=== PATIENT | male | born 1995 | race African-American/Black ===

== ENCOUNTER 2019-10-18 22:12 | Inpatient (IN) | payer OTHER ==
[2019-10-18] MEDS ORDERED: METOCLOPRAMIDE HCL INJECTION 10 MG/2 ML VIAL IVPB ONE (22:23)
--- NOTE | 2019-10-18 22:23 | PDOC ---
Rapid Medical Evaluation Chief Complaint: Headache Time Seen by Provider: 10/18/19 22:18 Medical Evaluation: 10/18/19 22:18 24 year old male BIBA seen at [facility] [place] yesterday for concussion / headache, patient reports headache today with photosensitivity, nausea. vomiting. s/p head injury 2 days ago while boxing. PE; patient alert ox3 A; headache P; ct head CBC CMP Discharge Disposition - Diagnosis Head injury due to trauma Qualifiers: Encounter type: initial encounter Qualified Code(s): S09.90XA - Unspecified injury of head, initial encounter Headache Qualifiers: Headache type: post-traumatic Headache chronicity pattern: acute headache Intractability: intractable Qualified Code(s): G44.311 - Acute post-traumatic headache, intractable - Referrals - Patient Instructions - Post Discharge Activity
[2019-10-18] MEDS ORDERED: ACETAMINOPHEN 1000 MG/100 ML VIAL (NON FORMULARY) IVPB ONE (22:24)
--- NOTE | 2019-10-18 23:05 | PDOC ---
History of Present Illness - General Chief Complaint: Headache Stated Complaint: INJURY/R/SIDE/HEAD/PAIN Time Seen by Provider: 10/18/19 22:18 - History of Present Illness Initial Comments: Oral Winston is a 24 y/o male with no reported PMH presenting today with headache. He was boxing at the gym on Friday, taking multiple gloved hits to the head. Reports brief LOC. Reports that he had a mild headache on Friday. Reports that the headache worsened yesterday and he was sent to [facility]. Today, he started having nausea and vomiting multiple times NBNB throughout the day that started when he woke up. Reports photophobia bilaterally that also started today. No vision changes. Reports right sided headache and right sided retro- orbital pain. Describes the pain as sharp. No radiation down the neck. No dizziness/fever. Reports associated abdominal pain that he attributes to the multiple episodes of vomiting. No chest pain/shortness of breath. No back pain. No leg swelling. SocHx: social ETOH drinker, smokes marijuana every other day, no cigarettes/vaping/hooka Past History - Medical History Allergies/Adverse Reactions: Allergies Allergy/AdvReac Type Severity Reaction Status Date / Time No Known Allergies Allergy Verified 10/18/19 22:25 COPD: No - Psycho-Social/Smoking History Smoking History: Current every day smoker Information on smoking cessation initiated: Yes - Substance Abuse Hx (Audit-C & DAST Scrn) How often the patient has a drink containing alcohol: Monthly or less Score: In Men: 4 or > Positive; In Women: 3 or > Positive: 1 Screen Result (Pos requires Nsg. Audit-10AR): Negative Review of Systems - Review of Systems Comments:: GENERAL/CONSTITUTIONAL: No fever or chills. No weakness._ HEAD, EYES, EARS, NOSE AND THROAT: No change in vision. Reports photophobia. No change in hearing. No sore throat._ CARDIOVASCULAR: No chest pain or shortness of breath_ RESPIRATORY: Denies cough, hemoptysis_ GASTROINTESTINAL: Reports nausea and vomiting. No diarrhea or constipation._ GENITOURINARY: No dysuria, frequency, or change in urination._ MUSCULOSKELETAL: No joint or muscle swelling or pain. No neck or back pain._ SKIN: No rash_ NEUROLOGIC: Reports right sided headache. Reports brief LOC. No vertigo or change in strength/sensation._ ENDOCRINE: No increased thirst. No abnormal weight change_ HEMATOLOGIC/LYMPHATIC: No anemia, easy bleeding, or history of blood clots._ ALLERGIC/IMMUNOLOGIC: No hives or skin allergy._ *Physical Exam - Vital Signs Last Vital Signs Temp Pulse Resp BP Pulse Ox 98.9 F 80 20 116/71 100 10/18/19 22:21 10/18/19 22:21 10/18/19 22:21 10/18/19 22:21 10/18/19 22:21 - Physical Exam GENERAL: Awake, alert, and oriented to person/place/time, in no acute distress_ HEAD: No signs of trauma, normocephalic, atraumatic _ EYES: PERRLA, EOMI, sclera anicteric, conjunctiva clear. No nystagmus on far lateral gaze bilaterally. ENT: Hearing grossly normal, nares patent, oropharynx clear without exudates. No uvular deviation. Moist mucosa_ NECK: Normal ROM, supple, no lymphadenopathy, JVD, or masses_ LUNGS: No distress, speaks in full sentences, clear to auscultation bilaterally _ HEART: Regular rate and rhythm, normal S1 and S2, no murmurs appreciated, peripheral pulses normal and equal bilaterally._ ABDOMEN: Soft, mild diffuse TTP, normoactive bowel sounds. No guarding, no rebound. No masses_ EXTREMITIES: Normal inspection, Normal range of motion, no edema. No clubbing or cyanosis_ NEUROLOGICAL: CN II-XII tested and intact. Sensation intact to sharp/dull differentiation in all extremities. Motor: Normal tone and bulk. No abnormal movements appreciated. No pronator drift. Strength tested and 5/5 in bilateral wrist flexion/extension, elbow flexion/extension, shoulder abduction, straight leg raise, knee flexion/exten braxton, ankle dorsiflexion/plantarflexion. Patient ambulates with a steady gait. Coordination: Finger to nose and heel to hurley testing intact bilaterally. SKIN: Warm, Dry, normal turgor, no rashes or lesions noted_ ED Treatment Course - LABORATORY CBC & Chemistry Diagram: 10/19/19 06:25 10/19/19 06:25 Medical Decision Making - Medical Decision Making 24M presenting today with right sided headache that started on Friday after he was boxing. Photophobia/nausea/vomiting started when he woke up this morning. DDx includes r/o intracranial hemorrhage vs concussion. -CT head/neck -cbc/cmp -coags -type and screen 10/18/19 23:04 CT head shows right pareital subdural hemorrhage 6mm with no mass effect and no midline shift. Case d/w Dr. Marr. 10/18/19 23:15 D/w Dr. Menjivar who requests ICU admission. No mannitol/IV fluids. Head of bed up 30 degrees. Tylenol/percocet/codeine for pain PRN. BP as is. Q4h neuro checks. Will evaluate tomorrow morning. D/w Dr. Taylor who accepts the patient for admission. Discharge - Discharge Information Problems reviewed: Yes Clinical Impression/Diagnosis: Subdural hemorrhage Head injury due to trauma Qualifiers: Encounter type: initial encounter Qualified Code(s): S09.90XA - Unspecified injury of head, initial encounter Headache Qualifiers: Headache type: post-traumatic Headache chronicity pattern: acute headache Intractability: intractable Qualified Code(s): G44.311 - Acute post-traumatic headache, intractable Condition: Guarded - Admission Yes - Follow up/Referral - Patient Discharge Instructions - Post Discharge Activity
[2019-10-18] MEDS ORDERED: METOCLOPRAMIDE HCL INJECTION 10 MG/2 ML VIAL ONE (23:16)
[2019-10-18] MEDS ORDERED: ACETAMINOPHEN INJECTION 100 ML IVPB ONE (23:17)
--- NOTE | 2019-10-18 23:21 | PDOC ---
Documentation entered by Sole Alex SCRIBE, acting as scribe for Sridevi Rosario MD. Sridevi Rosario MD: This documentation has been prepared by the Isai don Brenda, SCRIBE, under my direction and personally reviewed by me in its entirety. I confirm that the documentation accurately reflects all work, treatment, procedures, and medical decision making performed by me. Attending Attestation - Resident Resident Name: MaxwellAlfredo - ED Attending Attestation I have performed the following: I have examined & evaluated the patient, The case was reviewed & discussed with the resident, I agree w/resident's findings & plan, Exceptions are as noted - HPI HPI: 10/18/19 22:45 The patient is a 24 year old male with no significant PMH who presents to the ED BIBA for evaluation of headache, photosensitivity, nausea and vomiting s/p head injury 2 days ago (Friday). Patient notes that while boxing, he hit her head and the next day (yesterday) she went to [facility] for a left-sided headache and retro-orbital pain. Patient notes that after being hit he briefly lost conscious in the left eye. He notes that today he had several episodes of vomiting and complains of abdominal pain. Allergies: NKA - Physicial Exam PE: 10/18/19 23:11 24 yo male was boxing at a gym on Friday and received several gloved blows to the head and has since developed headaches associated with vomiting 10/18/19 23:13 10/18/19 23:14 head no scalp lacerations neck no midline cervical vertebral tenderness lungs cta b/l cvs [id number] abdomen flat,nontender extremities no edema.no deformities skn warm and dry neuro alert and conversant,+photophobia - Medical Decision Making 10/18/19 23:16 ct scan hed reveals a 6 mm right parietal subdural hematoma, there is no shift, no mass effect case discussed with neurosurgery, Dr Menjivar and he said no mannital or IVF pt can get tylenol or percocet or codeine for pain keep bed at 30 degrees Q4 neuro checks admit to ICU Discharge - Discharge Information Problems reviewed: Yes Clinical Impression/Diagnosis: Head injury due to trauma Qualifiers: Encounter type: initial encounter Qualified Code(s): S09.90XA - Unspecified injury of head, initial encounter Headache Qualifiers: Headache type: post-traumatic Headache chronicity pattern: acute headache Intractability: intractable Qualified Code(s): G44.311 - Acute post-traumatic headache, intractable - Follow up/Referral - Patient Discharge Instructions - Post Discharge Activity
[2019-10-18] MEDS ORDERED: AMIODARONE HCL 150 MG/3 ML VIAL IVPUSH ONE (23:32)
[2019-10-18 23:52] LABS: BASO % 0.2 % (0-2.0); HEMATOCRIT 43.7 % (35.4-49); HEMOGLOBIN 15.2 GM/dL (11.7-16.9); LYMPH % 14.6 % (8-40); MCH 30.9 pg (25.7-33.7); MCHC 34.7 g/dl (32.0-35.9); MEAN PLT VOLUME 8.8 fl (7.5-11.1); MONO % 9.6 % (3.8-10.2); NEUT % 75.6 % (42.8-82.8); PLATELET COUNT 186 K/MM3 (134-434); RBC 4.91 M/mm3 (4.00-5.60); RDW 13.3 % (11.9-15.9); WHITE BLOOD COUNT 13.6 K/mm3 (4.0-10.0)
[2019-10-18 23:54] LABS: INR 1.08 (0.83-1.09); PROTHROMBIN TIME (PATIENT) 12.7 SEC (9.7-13.0)
[2019-10-18 23:56] LABS: ACTIVATED PTT 30.7 SECONDS (25.2-36.5)
[2019-10-19 00:07] LABS: ALBUMIN 4.2 g/dl (3.4-5.0); BLOOD UREA NITROGEN 7.3 mg/dL (7-18); CALCIUM 9.6 mg/dL (8.5-10.1); CREATININE 0.9 mg/dL (0.55-1.3); POTASSIUM 3.6 mmol/L (3.5-5.1); TOT PROT 7.8 g/dl (6.4-8.2)
--- NOTE | 2019-10-19 02:02 | CONSULT ---
Consultation: REQUESTING PROVIDER: CONSULT REQUEST: We have been asked to medically evaluate this patient for (specify). HISTORY OF PRESENT ILLNESS: Mr. Winston is a 24 yo male with no significant medical history, presented to [facility] s/p head trauma 2 days with NB/NB vomiting, photophobia and headaches. Pt states on Friday night head was boxing with some Friends with padded gloves and recalls being struck on the right side of his head leading to sudden onset intense pain. Since this event, pt reports persistent and worsening VORA since yesterday morning described as sharp and non radiating on the right side of his head. Pt reports multiple NB/NB episodes of vomiting and photophobia since this morning. Pt also admits to mild diffuse abdominal pain, worse when vomiting. Pt denies midline neck pain, weakness or sensory deficits into his extremities, changes in vision or speech, changes in gait, dizziness, incontinence or retention of urine or stool, F/C, CP, SOB, back pain, injury or pain to any other part of his body REVIEW OF SYSTEMS: CONSTITUTIONAL: Absent: fever, chills, diaphoresis, generalized weakness, malaise, loss of appetite, weight change HEENT: Absent: rhinorrhea, nasal congestion, throat pain, throat swelling, difficulty swallowing, mouth swelling, ear pain, eye pain, visual changes CARDIOVASCULAR: Absent: chest pain, syncope, palpitations, irregular heart rate, lightheadedness, peripheral edema RESPIRATORY: Absent: cough, shortness of breath, dyspnea with exertion, orthopnea, wheezing, stridor, hemoptysis GASTROINTESTINAL: Admits mild and diffuse abdominal pain to palpation, nausea, vomiting Denies, diarrhea, constipation, melena, hematochezia GENITOURINARY: Absent: dysuria, frequency, urgency, hesitancy, hematuria, flank pain, genital pain MUSCULOSKELETAL: Absent: myalgia, arthralgia, joint swelling, back pain, neck pain SKIN: Absent: rash, itching, pallor NEUROLOGIC: Admits right sided persistent headache and photophobia Denies focal weakness or paresthesias, dizziness, unsteady gait, seizure, mental status changes, bladder or bowel incontinence PHYSICAL EXAMINATION Vital Signs - 24 hr 10/18/19 22:21 Temperature 98.9 F Pulse Rate 80 Respiratory 20 Rate Blood Pressure 116/71 O2 Sat by Pulse 100 Oximetry (%) GENERAL: Awake, alert, and fully oriented, laying in room with blanket covering eyes due to Photophobia HEAD: Normal with no signs of trauma. Pain on palpation to right temporal region EYES: Pupils equal, round and reactive to light, extraocular movements intact, sclera anicteric, conjunctiva clear. No lid lag. EARS, NOSE, THROAT: Ears normal, nares patent, oropharynx clear without exudates. Moist mucous membranes. No hemotympanum NECK: Normal range of motion, supple without lymphadenopathy, JVD, or masses. No pain midline on palpation LUNGS: Breath sounds equal, clear to auscultation bilaterally. No wheezes, and no crackles. No accessory muscle use. HEART: Regular rate and rhythm, normal S1 and S2 without murmur, rub or gallop. ABDOMEN: Soft, nontender, not distended, normoactive bowel sounds, no guarding, no rebound, no masses. No hepatomegaly or splenomegaly. Mild pain on light palpation diffusely MUSCULOSKELETAL: Normal range of motion at all joints. No bony deformities or tenderness. No CVA tenderness. Pelvis stable UPPER EXTREMITIES: 2+ pulses, warm, well-perfused. No cyanosis. No clubbing. Cap refill <2 seconds. No peripheral edema. LOWER EXTREMITIES: 2+ pulses, warm, well-perfused. No calf tenderness. No peripheral edema. NEUROLOGICAL: Cranial nerves II-XII intact. Normal speech. Normal gait. 5/5 strength and equal in both upper and lower ext compared PSYCHIATRIC: Cooperative. Good eye contact. Appropriate mood and affect. SKIN: Warm, dry, normal turgor, no rashes or lesions noted. Laboratory Results - last 24 hr 10/18/19 10/18/19 10/18/19 23:30 23:30 23:30 WBC 13.6 H RBC 4.91 Hgb 15.2 Hct 43.7 MCV 89.0 MCH 30.9 MCHC 34.7 RDW 13.3 Plt Count 186 MPV 8.8 Absolute Neuts (auto) 10.2 H Neutrophils % 75.6 Lymphocytes % 14.6 Monocytes % 9.6 Eosinophils % 0.0 Basophils % 0.2 Nucleated RBC % 0 PT with INR 12.70 INR 1.08 PTT (Actin FS) 30.7 Sodium 138 Potassium 3.6 Chloride 103 Carbon Dioxide 26 Anion Gap 8 BUN 7.3 Creatinine 0.9 Est GFR (CKD-EPI)AfAm 140.02 Est GFR (CKD-EPI)NonAf 120.81 Random Glucose 112 H Calcium 9.6 Total Bilirubin 2.0 H AST 26 ALT 24 Alkaline Phosphatase 84 Total Protein 7.8 Albumin 4.2 Lipase 52 L Blood Type Antibody Screen 10/18/19 23:30 WBC RBC Hgb Hct MCV MCH MCHC RDW Plt Count MPV Absolute Neuts (auto) Neutrophils % Lymphocytes % Monocytes % Eosinophils % Basophils % Nucleated RBC % PT with INR INR PTT (Actin FS) Sodium Potassium Chloride Carbon Dioxide Anion Gap BUN Creatinine Est GFR (CKD-EPI)AfAm Est GFR (CKD-EPI)NonAf Random Glucose Calcium Total Bilirubin AST ALT Alkaline Phosphatase Total Protein Albumin Lipase Blood Type O POSITIVE Antibody Screen Negative Active Medications Generic Name Dose Route Start Last Admin Trade Name Freq PRN Reason Stop Dose Admin Acetaminophen 1,000 mg 10/19/19 00:14 Ofirmev Injection - IVPB 10/20/19 00:15 Q6H PRN HEADACHE Chlorhexidine Gluconate 1 applic 10/19/19 22:00 Hibiclens For Decolonization - TP HS EDITH Mupirocin 1 applic 10/19/19 10:00 Bactroban Ointment (For Decolonization) - NS 10/24/19 09:59 BID EDITH ASSESSMENT/PLAN: CT head shows 5.7 mm right parietal subdural hemorrhage without mass effect or shift S/P 2 days from injury As Per ED Resident, Dr. Arreola, case was discussed with Dr. Menjivar who states the bleed appears to be resolving and recommendations are listed below *Neuro -NS evaluation in the AM with further instructions -head of the bed 30 degrees -Do not give mannitol or fluids -Keep BP below 140 systolic -give tylenol or percocets or codeine for pain -Q4 Neuro checks -SCDs for DVT prophylaxis (hold all AC and anti platelets) Dispo: We will continue to follow the patient. Thank you for this consultative opportunity. ATTENDING PHYSICIAN STATEMENT I saw and evaluated the patient. I reviewed the resident's note and discussed the case with the resident. I agree with the resident's findings and plan as documented. SUBJECTIVE: OBJECTIVE: ASSESSMENT AND PLAN:
--- NOTE | 2019-10-19 07:36 | PN ---
Physical Exam: SUBJECTIVE: Patient seen and examined OBJECTIVE: Vital Signs Period Temp Pulse Resp BP Sys/Miles Pulse Ox Last 24 Hr 98.2 F-98.9 F 57-80 15-20 101-116/55-71 97-100 GENERAL: The patient is awake, alert, and fully oriented, in no acute distress. HEAD: Normal with no signs of trauma. EYES: PERRL, extraocular movements intact, sclera anicteric, conjunctiva clear. No ptosis. ENT: Ears normal, nares patent, oropharynx clear without exudates, moist mucous membranes. NECK: Trachea midline, full range of motion, supple. LUNGS: Breath sounds equal, clear to auscultation bilaterally, no wheezes, no crackles, no accessory muscle use. HEART: Regular rate and rhythm, S1, S2 without murmur, rub or gallop. ABDOMEN: Soft, nontender, nondistended, normoactive bowel sounds, no guarding, no rebound, no hepatosplenomegaly, no masses. EXTREMITIES: 2+ pulses, warm, well-perfused, no edema. NEUROLOGICAL: Cranial nerves II through XII grossly intact. Normal speech, gait not observed. PSYCH: Normal mood, normal affect. SKIN: Warm, dry, normal turgor, no rashes or lesions noted Laboratory Results - last 24 hr 10/18/19 10/18/19 10/18/19 23:30 23:30 23:30 WBC 13.6 H RBC 4.91 Hgb 15.2 Hct 43.7 MCV 89.0 MCH 30.9 MCHC 34.7 RDW 13.3 Plt Count 186 MPV 8.8 Absolute Neuts (auto) 10.2 H Neutrophils % 75.6 Lymphocytes % 14.6 Monocytes % 9.6 Eosinophils % 0.0 Basophils % 0.2 Nucleated RBC % 0 PT with INR 12.70 INR 1.08 PTT (Actin FS) 30.7 Sodium 138 Potassium 3.6 Chloride 103 Carbon Dioxide 26 Anion Gap 8 BUN 7.3 Creatinine 0.9 Est GFR (CKD-EPI)AfAm 140.02 Est GFR (CKD-EPI)NonAf 120.81 Random Glucose 112 H Calcium 9.6 Total Bilirubin 2.0 H AST 26 ALT 24 Alkaline Phosphatase 84 Total Protein 7.8 Albumin 4.2 Lipase 52 L Blood Type Antibody Screen 10/18/19 23:30 WBC RBC Hgb Hct MCV MCH MCHC RDW Plt Count MPV Absolute Neuts (auto) Neutrophils % Lymphocytes % Monocytes % Eosinophils % Basophils % Nucleated RBC % PT with INR INR PTT (Actin FS) Sodium Potassium Chloride Carbon Dioxide Anion Gap BUN Creatinine Est GFR (CKD-EPI)AfAm Est GFR (CKD-EPI)NonAf Random Glucose Calcium Total Bilirubin AST ALT Alkaline Phosphatase Total Protein Albumin Lipase Blood Type O POSITIVE Antibody Screen Negative Active Medications Generic Name Dose Route Start Last Admin Trade Name Freq PRN Reason Stop Dose Admin Acetaminophen 1,000 mg 10/19/19 00:14 Ofirmev Injection - IVPB 10/20/19 00:15 Q6H PRN HEADACHE Chlorhexidine Gluconate 1 applic 10/19/19 22:00 Hibiclens For Decolonization - TP HS EDITH Mupirocin 1 applic 10/19/19 10:00 Bactroban Ointment (For Decolonization) - NS 10/24/19 09:59 BID EDITH ASSESSMENT/PLAN: ATTENDING PHYSICIAN STATEMENT I saw and evaluated the patient. I reviewed the resident's note and discussed the case with the resident. I agree with the resident's findings and plan as documented. SUBJECTIVE: OBJECTIVE: ASSESSMENT AND PLAN:
[2019-10-19 07:39] LABS: BASO % 0.3 % (0-2.0); EOS % 0.3 % (0-4.5); HEMATOCRIT 42.2 % (35.4-49); HEMOGLOBIN 14.7 GM/dL (11.7-16.9); LYMPH % 22.4 % (8-40); MCH 31.4 pg (25.7-33.7); MCHC 34.9 g/dl (32.0-35.9); MEAN PLT VOLUME 8.9 fl (7.5-11.1); MONO % 11.4 % (3.8-10.2); NEUT % 65.6 % (42.8-82.8); PLATELET COUNT 189 K/MM3 (134-434); RBC 4.69 M/mm3 (4.00-5.60); RDW 12.9 % (11.9-15.9); WHITE BLOOD COUNT 12.6 K/mm3 (4.0-10.0)
[2019-10-19 07:53] LABS: BILIRUBIN,TOTAL 2.3 mg/dL (0.2-1); BLOOD UREA NITROGEN 7.9 mg/dL (7-18); CALCIUM 9.5 mg/dL (8.5-10.1); MAGNESIUM 2.3 mg/dL (1.8-2.4); PHOSPHOROUS 4.7 mg/dL (2.5-4.9); POTASSIUM 3.8 mmol/L (3.5-5.1); TOT PROT 7.5 g/dl (6.4-8.2)
[2019-10-19] MEDS: MUPIROCIN 2% TOPICAL OINTMENT FOR DECOLONIZATION NS SCH ×2 (09:37→21:24)
--- NOTE | 2019-10-19 10:43 | EKG ---
Test Reason : Blood Pressure : / mmHG Vent. Rate : 062 BPM Atrial Rate : 062 BPM P-R Int : 136 ms QRS Dur : 102 ms QT Int : 402 ms P-R-T Axes : 048 051 048 degrees QTc Int : 408 ms SINUS RHYTHM WITH MARKED SINUS ARRHYTHMIA OTHERWISE NORMAL ECG NO PREVIOUS ECGS AVAILABLE Confirmed by Donald Grissom ([id number]) on 10/19/2019 10:43:27 AM Referred By: Confirmed By:Donald Grissom
--- NOTE | 2019-10-19 11:12 | PN ---
Teaching Attending Note Name of Resident: Francois Morales ATTENDING PHYSICIAN STATEMENT I saw and evaluated the patient. I reviewed the resident's note and discussed the case with the resident. I agree with the resident's findings and plan as documented. SUBJECTIVE: Pt seen and examined in the ICU. Still some photophobia, nausea improving. No shortness of breath or chest pain. OBJECTIVE: Vital Signs Period Temp Pulse Resp BP Sys/Miles Pulse Ox Last 24 Hr 98.0 F-98.9 F 57-80 15-20 101-116/55-71 97-100 Intake & Output 10/16/19 10/17/19 10/18/19 10/19/19 23:59 23:59 23:59 23:59 Weight 63.503 kg 63.5 kg Gen: NAD at rest Heart: RRR Lung: decreased breath sounds at the bases Abd: soft, nontender Ext: no edema CBC, BMP 10/19/19 06:25 10/19/19 06:25 Active Medications Acetaminophen (Ofirmev Injection -) 1,000 mg IVPB Q6H PRN PRN Reason: HEADACHE Stop: 10/20/19 00:15 Chlorhexidine Gluconate (Hibiclens For Decolonization -) 1 applic TP HS EDITH Mupirocin (Bactroban Ointment (For Decolonization) -) 1 applic NS BID EDITH Stop: 10/24/19 09:59 Last Admin: 10/19/19 09:37 Dose: 1 applic Documented by: ASSESSMENT AND PLAN: Traumatic Subdural Hemorrhage - neuro checks - CT head in AM - pain control - DVT prophylaxis - continue ICU monitoring
[2019-10-19] MEDS: ACETAMINOPHEN 1000 MG/100 ML VIAL (NON FORMULARY) IVPB PRN ×2 (13:23→19:55)
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
--- NOTE | 2019-10-19 17:28 | HOSP ---
Subjective - Review of Symptoms Subjective: Pt seen and assessed at bedside in ICU, seen stable, NAD, AOx3. Pt stable for transfer from ICU to /. Physical Examination Vital Signs: Vital Signs Temperature 98.0 F 10/19/19 14:00 Pulse Rate 58 L 10/19/19 14:00 Respiratory Rate 20 10/19/19 14:00 Blood Pressure 106/64 10/19/19 14:00 O2 Sat by Pulse Oximetry (%) 100 10/19/19 14:00 Findings/Remarks: General: AOx3, pt resting comfortably in bed Lungs: Clear B/L Heart: RRR, no murmurs or rubs noted Abdomen: Soft, non-tender, non distended Neuro: Motor 5/5, sensations intact in all 4 extremities Extremities: 2+ pulses, no edema Labs: CBC, BMP 10/19/19 06:25 10/19/19 06:25 Visit type - Emergency Visit Emergency Visit: No - New Patient This patient is new to me today: No - Critical Care Critical Care patient: No
[2019-10-19] MEDS: CHLORHEXIDINE GLUCONATE 4% CLEANSER FOR DECOLONIZATION TP SCH (21:24)
[2019-10-20] MEDS ORDERED: oxyCODONE HCL 5 MG TABLET PO ONE ×2 (00:22→17:22)
[2019-10-20] MEDS: ACETAMINOPHEN 1000 MG/100 ML VIAL (NON FORMULARY) IVPB PRN ×3 (02:41→15:34)
[2019-10-20 06:31] LABS: BASO % 0.2 % (0-2.0); EOS % 0.4 % (0-4.5); HEMATOCRIT 42.5 % (35.4-49); HEMOGLOBIN 14.8 GM/dL (11.7-16.9); LYMPH % 24.1 % (8-40); MCH 31.4 pg (25.7-33.7); MCHC 34.9 g/dl (32.0-35.9); MEAN CELL VOLUME 89.9 fl (80-96); MEAN PLT VOLUME 8.8 fl (7.5-11.1); MONO % 9.7 % (3.8-10.2); NEUT % 65.6 % (42.8-82.8); PLATELET COUNT 198 K/MM3 (134-434); RBC 4.72 M/mm3 (4.00-5.60); RDW 13.1 % (11.9-15.9); WHITE BLOOD COUNT 10.2 K/mm3 (4.0-10.0)
[2019-10-20 06:43] LABS: BLOOD UREA NITROGEN 11.9 mg/dL (7-18); CALCIUM 9.5 mg/dL (8.5-10.1); CREATININE 1.1 mg/dL (0.55-1.3)
[2019-10-20] MEDS ORDERED: diphenhydrAMINE HCL 25 MG CAPSULE (FP) PO PRN (09:09)
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
--- NOTE | 2019-10-20 09:16 | CON.NEURO ---
Consult - Smoking History Smoking history: Current every day smoker Have you smoked in the past 12 months: Yes Home Medications - Allergies Allergies/Adverse Reactions: Allergies Allergy/AdvReac Type Severity Reaction Status Date / Time No Known Allergies Allergy Verified 10/18/19 22:25 Physical Exam-Neuro Vital Signs: Vital Signs Temperature 98.0 F 10/19/19 14:00 Pulse Rate 54 L 10/20/19 08:00 Respiratory Rate 17 10/20/19 08:00 Blood Pressure 105/60 10/20/19 08:00 O2 Sat by Pulse Oximetry (%) 98 10/20/19 08:00 Labs: CBC, BMP 10/20/19 05:55 10/20/19 05:55 INR, PTT INR 1.08 (0.83-1.09) 10/18/19 23:30 Assessment/Plan cc Right parietal small subdural while boxing HPI 24 nilsa old male, otherwise healthy came to hospital for headache and vomiting, found to have small subdural hematoma. He is being managed conservatively, patient is complaining of headhace. He was seen by neurosurgery.Pateint is sleepy this morning, as he could not sleep during night. He is being downgraded from icu. Patient denies any esizure, fever or any flu like s ymptoms. PMH not significant SocHx: social ETOH drinker, smokes marijuana every other day, no cigarettes/vaping/hooka Allergies/Adverse Reactions: Allergies Allergy/AdvReac Type Severity Reaction Status Date / Time No Known Allergies Allergy Verified 10/18/19 22:25 ROS,FH,SH reviewed in chart NEUROLOGICAL EXMAINATION Alert oriented x 3, neck is supple vss, afebrile eomi, pupils reactive no face asymmetry face sensation is normal motor 5/5 all ext sensation is normal reflex are symmetrical ct head done on october 29 - unchanged , no midline shift Neurosurgeyr following Assessment/Plan Small subdural while boxing, no comorbidity, clinically and neuroloigcally stable, being downgrade. I spent 35 min cc time Plan: continue tylenol or opioid prn for headahce - spoke to house staff, may add compazine and benadryl for headahce prn - neurosurgery following - repeat ct head on october 21 Thanking you so much René Nye MD
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
[2019-10-20] MEDS: MUPIROCIN 2% TOPICAL OINTMENT FOR DECOLONIZATION NS SCH ×2 (10:33→23:35)
--- NOTE | 2019-10-20 11:12 | PN ---
Teaching Attending Note Name of Resident: Francois Morales ATTENDING PHYSICIAN STATEMENT I saw and evaluated the patient. I reviewed the resident's note and discussed the case with the resident. I agree with the resident's findings and plan as documented. SUBJECTIVE: Pt seen and examined in the ICU. Photophobia, nausea improving. No shortness of breath or chest pain. CT head this AM unchanged. OBJECTIVE: Vital Signs Period Temp Pulse Resp BP Sys/Miles Pulse Ox Last 24 Hr 98.0 F-98.6 F 54-58 17-20 105-111/57-68 97-100 Intake & Output 10/17/19 10/18/19 10/19/19 10/20/19 23:59 23:59 23:59 23:59 Intake Total 600 150 Balance 600 150 Weight 63.503 kg 63.5 kg 63.5 kg Gen: NAD at rest Heart: RRR Lung: decreased breath sounds at the bases Abd: soft, nontender Ext: no edema CBC, BMP 10/20/19 05:55 10/20/19 05:55 Active Medications Acetaminophen (Ofirmev Injection -) 1,000 mg IVPB Q6H PRN PRN Reason: PAIN LEVEL 1-5 Stop: 10/21/19 02:28 Last Admin: 10/20/19 09:18 Dose: 1,000 mg Documented by: Chlorhexidine Gluconate (Hibiclens For Decolonization -) 1 applic TP HS [facility] Last Admin: 10/19/19 21:24 Dose: 1 applic Documented by: Diphenhydramine HCl (Benadryl -) 25 mg PO HS PRN PRN Reason: INSOMNIA Mupirocin (Bactroban Ointment (For Decolonization) -) 1 applic NS BID [facility] Stop: 10/24/19 09:59 Last Admin: 10/20/19 10:33 Dose: 1 applic Documented by: Prochlorperazine Maleate (Compazine -) 5 mg PO Q4H PRN PRN Reason: NAUSEA AND/OR VOMITING ASSESSMENT AND PLAN: Traumatic Subdural Hemorrhage - neuro checks - pain control - DVT prophylaxis - can monitor on floor
[2019-10-20] MEDS: PROCHLORPERAZINE MALEATE 5 MG TABLET PO PRN (15:31)
[2019-10-20 15:46] VITALS: BMI 21.7
[2019-10-20] MEDS ORDERED: SODIUM CHLORIDE 1,000 ML IV STA (18:23)
[2019-10-20] MEDS ORDERED: diphenhydrAMINE HCL 25 MG CAPSULE (FP) PO ONE (18:31)
[2019-10-20] MEDS ORDERED: ACETAMINOPHEN 1000 MG/100 ML VIAL (NON FORMULARY) IVPB PRN (18:36)
[2019-10-20] MEDS: CHLORHEXIDINE GLUCONATE 4% CLEANSER FOR DECOLONIZATION TP SCH (22:00)
[2019-10-21] MEDS: PROCHLORPERAZINE MALEATE 5 MG TABLET PO PRN ×3 (01:50→21:54)
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
[2019-10-21 08:12] LABS: BASO % 0.2 % (0-2.0); EOS % 0.2 % (0-4.5); HEMATOCRIT 41.7 % (35.4-49); HEMOGLOBIN 14.5 GM/dL (11.7-16.9); LYMPH % 14.7 % (8-40); MCHC 34.8 g/dl (32.0-35.9); MEAN CELL VOLUME 89.2 fl (80-96); MEAN PLT VOLUME 8.9 fl (7.5-11.1); MONO % 9.1 % (3.8-10.2); NEUT % 75.8 % (42.8-82.8); PLATELET COUNT 226 K/MM3 (134-434); RBC 4.67 M/mm3 (4.00-5.60); RDW 12.8 % (11.9-15.9)
[2019-10-21 08:42] LABS: BILIRUBIN,TOTAL 1.6 mg/dL (0.2-1); BLOOD UREA NITROGEN 9.2 mg/dL (7-18); CALCIUM 9.5 mg/dL (8.5-10.1); CREATININE 0.8 mg/dL (0.55-1.3); POTASSIUM 3.8 mmol/L (3.5-5.1); TOT PROT 7.6 g/dl (6.4-8.2)
[2019-10-21] MEDS ORDERED: PT OWN MED DRAWER 7, Y5N ONE (08:55)
[2019-10-21] MEDS: ACETAMINOPHEN 1000 MG/100 ML VIAL (NON FORMULARY) IVPB PRN ×3 (09:10→21:56)
[2019-10-21] MEDS: SODIUM CHLORIDE 1,000 ML IV SCH (09:12)
--- NOTE | 2019-10-21 10:46 | PN ---
Teaching Attending Note Name of Resident: Franocis Moralse ATTENDING PHYSICIAN STATEMENT I saw and evaluated the patient. I reviewed the resident's note and discussed the case with the resident. I agree with the resident's findings and plan as documented. SUBJECTIVE: Pt seen and examined in the ICU. Photophobia, nausea persist but improving. No shortness of breath or chest pain. OBJECTIVE: Vital Signs Period Temp Pulse Resp BP Sys/Miles Pulse Ox Last 24 Hr 98.0 F-98.4 F 44-72 14-18 99-119/56-77 98-100 Intake & Output 10/18/19 10/19/19 10/20/19 10/21/19 23:59 23:59 23:59 23:59 Intake Total 559 297 2398 Balance 932 393 1136 Weight 63.503 kg 63.5 kg 63.049 kg 63.049 kg Gen: NAD at rest Heart: RRR Lung: decreased breath sounds at the bases Abd: soft, nontender Ext: no edema CBC, BMP 10/21/19 06:40 10/21/19 06:40 Active Medications Acetaminophen (Ofirmev Injection -) 650 mg IVPB Q4H-IV PRN PRN Reason: PAIN LEVEL 1-5 Last Admin: 10/21/19 09:10 Dose: 650 mg Documented by: Chlorhexidine Gluconate (Hibiclens For Decolonization -) 1 applic TP HS EDITH Last Admin: 10/20/19 22:00 Dose: 1 applic Documented by: Diphenhydramine HCl (Benadryl -) 25 mg PO HS PRN PRN Reason: INSOMNIA Sodium Chloride (Normal Saline -) 1,000 mls @ 75 mls/hr IV ASDIR EDITH Last Admin: 10/21/19 09:12 Dose: 75 mls/hr Documented by: Mupirocin (Bactroban Ointment (For Decolonization) -) 1 applic NS BID EDITH Stop: 10/24/19 09:59 Last Admin: 10/20/19 23:35 Dose: Not Given Documented by: Prochlorperazine Maleate (Compazine -) 5 mg PO Q4H PRN PRN Reason: NAUSEA AND/OR VOMITING Last Admin: 10/21/19 01:50 Dose: 5 mg Documented by: ASSESSMENT AND PLAN: Traumatic Subdural Hemorrhage - neuro checks - repeat CT head in AM - pain control - DVT prophylaxis - can monitor on floor
--- NOTE | 2019-10-21 11:12 | PN ---
Progress Note (short form) - Note Progress Note: 24 nilsa old male, otherwise healthy came to hospital for headache and vomiting, found to have small subdural hematoma. He is being managed conservatively, patient is complaining of headhace. He was seen by neurosurgery.Pateint is sleepy this morning, as he could not sleep during night. He is being downgraded from icu. Patient denies any esizure, fever or any flu like s ymptoms. He is feeling better, no new focal neurological symptoms. NEUROLOGICAL EXMAINATION Alert oriented x 3, neck is supple vss, afebrile eomi, pupils reactive no face asymmetry face sensation is normal motor 5/5 all ext sensation is normal reflex are symmetrical ct head done on october 29 - unchanged , no midline shift Neurosurgeyr following Assessment/Plan Small subdural while boxing, no comorbidity, clinically and neuroloigcally stable. Plan: supportive care - neuro exam - final disposition as per neurosurgery Thanking you so much René Nye MD
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
[2019-10-21] MEDS: MUPIROCIN 2% TOPICAL OINTMENT FOR DECOLONIZATION NS SCH ×2 (20:32→22:20)
[2019-10-21] MEDS ORDERED: CHLORHEXIDINE GLUCONATE 4% CLEANSER FOR DECOLONIZATION TP SCH (22:00)
[2019-10-22] MEDS: PROCHLORPERAZINE MALEATE 5 MG TABLET PO PRN (01:51)
[2019-10-22 06:13] VITALS: BP 102/43; PULSE 56; TEMP 98.4
[2019-10-22] MEDS: SODIUM CHLORIDE 1,000 ML IV SCH (06:44)
[2019-10-22 08:19] LABS: BASO % 0.1 % (0-2.0); EOS % 0.5 % (0-4.5); HEMATOCRIT 39.9 % (35.4-49); HEMOGLOBIN 14.2 GM/dL (11.7-16.9); LYMPH % 18.5 % (8-40); MCH 31.5 pg (25.7-33.7); MCHC 35.5 g/dl (32.0-35.9); MEAN CELL VOLUME 88.9 fl (80-96); MEAN PLT VOLUME 8.4 fl (7.5-11.1); NEUT % 69.9 % (42.8-82.8); PLATELET COUNT 235 K/MM3 (134-434); RBC 4.49 M/mm3 (4.00-5.60); RDW 12.7 % (11.9-15.9); WHITE BLOOD COUNT 10.2 K/mm3 (4.0-10.0)
[2019-10-22 08:40] LABS: ALBUMIN 3.6 g/dl (3.4-5.0); BILIRUBIN,TOTAL 1.3 mg/dL (0.2-1); CALCIUM 9.2 mg/dL (8.5-10.1); CREATININE 0.8 mg/dL (0.55-1.3); POTASSIUM 4.2 mmol/L (3.5-5.1); TOT PROT 7.2 g/dl (6.4-8.2)
[2019-10-22] MEDS: MUPIROCIN 2% TOPICAL OINTMENT FOR DECOLONIZATION NS SCH (10:09)
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
--- NOTE | 2019-10-22 13:45 | PN ---
Progress Note (short form) - Note Progress Note: 24 nilsa old male, otherwise healthy came to hospital for headache and vomiting, found to have small subdural hematoma. He is being managed conservatively, patient is complaining of headhace. He was seen by neurosurgery.Pateint is sleepy this morning, as he could not sleep during night. He is being downgraded from icu. Patient denies any esizure, fever or any flu like s ymptoms. He is feeling better, no new focal neurological symptoms. no new complain, spoke to house staff NEUROLOGICAL EXMAINATION Alert oriented x 3, neck is supple vss, afebrile eomi, pupils reactive no face asymmetry face sensation is normal motor 5/5 all ext sensation is normal reflex are symmetrical ct head done on october 29 - unchanged , no midline shift Neurosurgeyr following repeat ct head don milton october 31 unchaged Assessment/Plan Small subdural while boxing, no comorbidity, clinically and neuroloigcally stable. Plan: supportive care -can be discharged , once cleared by neurosurgery Thanking you so much René Nye MD
== END 2019-10-22 14:55 | disposition home or self-care (01) | DRG 55 ==
LOC: JER 22:12 → JERBED 23:20 → JICU 10-19 04:16 → J6S 10-21 21:16
PROVIDERS: ADMIT Internal Medicine; ATTEND Nurse Practitioner Family
DX: S06.5X1A Traumatic subdural hemorrhage with loss of consciousness of 30 minutes or less, initial encounter (principal); R11.2 Nausea with vomiting, unspecified; H57.11 Ocular pain, right eye; G44.311 Acute post-traumatic headache, intractable; Y93.71 Activity, boxing; H53.143 Visual discomfort, bilateral; F12.90 Cannabis use, unspecified, uncomplicated; Z72.89 Other problems related to lifestyle
CPT/HCPCS: 36415; 70450-TC; 71045-TC-FY; 72125-TC; 74177-TC; 80048; 80053; 83690; 83735; 84100; 85025; 85610; 85730; 86850; 86900; 86901; 93005; 93010; 97116-GP; 97161-GP; 99285-25; J0131; U0003